=== PATIENT | female | born 1970 | race Caucasian/White ===

== ENCOUNTER 2020-08-05 06:29 | Outpatient (REF) | payer OTHER, SELFPAY | END 2020-08-05 06:30 | disposition home or self-care (01) | LOC: HO.LAB 06:29 | PROVIDERS: PCP Physician Assistant Medical; Visit Provider Internal Medicine | DX: Z20.828 Contact with and (suspected) exposure to other viral communicable diseases (principal) | CPT/HCPCS: C9803; U0003 ==

== ENCOUNTER 2021-07-29 10:56 | Outpatient (REF) | payer OTHER, SELFPAY ==
[2021-07-29 12:03] LABS: IDNOW Serial# 16C4AD1C
[2021-07-29 12:04] LABS: COVID-19 Test Negative (Negative)
== END 2021-07-29 10:57 | disposition home or self-care (01) ==
LOC: HO.LAB 10:56
PROVIDERS: Visit Provider Internal Medicine
DX: Z20.822 Contact with and (suspected) exposure to COVID-19 (principal)
CPT/HCPCS: 36415; 87635; C9803

== ENCOUNTER 2021-08-17 09:58 | Outpatient (REF) | payer OTHER, SELFPAY ==
[2021-08-17 10:36] LABS: Binax Internal Control QC Valid; Binax Lot number: 9864; Binax Now Covid-19 Ag Negative (Negative)
== END 2021-08-17 09:59 | disposition home or self-care (01) ==
LOC: HO.LAB 09:58
PROVIDERS: Visit Provider Internal Medicine
DX: Z20.822 Contact with and (suspected) exposure to COVID-19 (principal)
CPT/HCPCS: 36415; C9803

== ENCOUNTER 2022-06-18 08:50 | Outpatient (RCR) | payer OTHER, SELFPAY | END 2022-07-01 10:47 | disposition home or self-care (01) | LOC: HO.PT 08:50 | PROVIDERS: PCP Nurse Practitioner Family; Visit Provider Nurse Practitioner Family | DX: M54.50 Low back pain, unspecified (principal) | CPT/HCPCS: 97110; 97161 ==

== ENCOUNTER 2022-09-27 14:00 | Outpatient (RCR) | payer OTHER, SELFPAY | END 2022-12-30 15:05 | disposition home or self-care (01) | LOC: HO.PTWFD 14:00 | PROVIDERS: PCP Nurse Practitioner Family; Visit Provider Nurse Practitioner Family | DX: M54.9 Dorsalgia, unspecified (principal) | CPT/HCPCS: 97014; 97110; 97140; 97161; 97535 ==

== ENCOUNTER 2023-04-19 09:55 | Outpatient (AMB) | payer OTHER, SELFPAY ==
--- NOTE | 2023-04-19 10:06 | A.OFFVIS_ITS ---
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 States her right hand is worse. States symptoms have worsen in the last year but symptoms initially started about 10 yrs ago. Patient has tried bracing and exercises at home. Patient has an appointment book with another orthopedic who is offering injection. Patient would like to discuss surgical intervention since she is concern about her muscle loss and weakness. No EMG done. 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 She says this has been present for ~10 years but has worsened in the last year. Her symptoms are intermittent, but daily, and worse at night. She says her hands go numb every night . She denies any small finger numbness. She is also concerned about her function, she says she has difficulty with activities such as doing her hair. She has an appointment booked with an outside orthopedic office who is offering her injections, but she would like to discuss surgery. She has tried bracing and exercises in the past, without relief. She says she has never completed a NCS in the past. 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 Review of Systems Const All systems reviewed & are unremarkable except as noted in HPI and below Physical Exam Vital Signs: BMI result Body Mass Index 27.2 Const General: no acute distress and alert Orientation/consciousness: patient oriented x3 HEENT Head: Yes normocephalic and Yes atraumatic Eyes EOM: EOMs intact bilaterally Resp Effort & Inspection: normal respiratory effort and able to speak in complete sentences Cardio Jugular venous distension: no JVD Skin General skin exam: turgor normal Rashes: no rashes Neuro General: patient oriented x3 Extrem Other: Evaluation of Bilateral Upper Extremity: The patient is alert, oriented, and in no acute distress Neuro: Median, Ulnar, Radial nerves motor and sensory intact and sensation is normal to the tips of all digits today in clinic No thenar or intrinsic wasting Good APB muscle belly firing and good finger cross Vascular: Cap refill brisk ROM: She can make a fist and extend all her digits No locking or catching Skin: No lacerations or abrasions. General: No Ecchymosis. No Erythema or evidence of infection. Psych Appearance: grossly normal Affect: normal affect Attitude: cooperative Assessment & Plan Assessment & Plan (1) Numbness and tingling in right hand: Code(s): R20.0 - Anesthesia of skin; R20.2 - Paresthesia of skin (2) Numbness and tingling in left hand: Code(s): R20.0 - Anesthesia of skin; R20.2 - Paresthesia of skin Plan Assessment & Plan: 1. Right hand numbness In the median nerve distribution Symptoms intermittent, but daily, worse at night or with activities 2. Left hand numbness In the median nerve distribution Symptoms intermittent, but daily, worse at night or with activities I educated her about Carpal tunnel syndrome We discussed operative and non operative treatment options. She no longer has relief from bracing at night. I explained that I am more likely to recommend operative treatment, as I do not believe that steroid injections would be beneficial at this point. I ordered a NCS to assess for peripheral neuropathy vs cervical radiculopathy She says she will cancel her scheduled injections with an outside orthopedic provider at this time. She will follow up when completed for review. Scribed for Roberta Luna MD by Antonio Barragan, medical lab tech instructor, on 04/19/23 at 10:40 AM, EST. Coding Level of Care Code New Pt Level 3 (18376) Diagnoses Numbness and tingling in right hand R20.0; R20.2 Numbness and tingling in left hand R20.0; R20.2
[2023-04-19 10:10] VITALS: BMI 27.2
== END 2023-04-19 10:58 | disposition home or self-care (01) ==
PROVIDERS: PCP Nurse Practitioner Family; Visit Provider Orthopaedic Surgery
DX: R20.0 Anesthesia of skin (principal); R20.2 Paresthesia of skin
CPT/HCPCS: 99203

== ENCOUNTER → 2023-04-19 09:55 | Outpatient (BNVA) | payer OTHER, SELFPAY | PROVIDERS: PCP Nurse Practitioner Family; Visit Provider Orthopaedic Surgery ==

== ENCOUNTER 2023-05-20 09:53 | Outpatient (REF) | payer OTHER, SELFPAY | END 2023-05-20 09:54 | disposition home or self-care (01) | LOC: HO.NEURO 09:53 | PROVIDERS: PCP Nurse Practitioner Family; Visit Provider Orthopaedic Surgery | DX: R20.0 Anesthesia of skin (principal); R20.2 Paresthesia of skin | CPT/HCPCS: 95886; 95911 ==

== ENCOUNTER → 2023-05-20 09:55 | Outpatient (BNV) | payer OTHER, SELFPAY | PROVIDERS: PCP Nurse Practitioner Family; Visit Provider Physical Medicine & Rehabilitation | DX: G56.13 Other lesions of median nerve, bilateral upper limbs (principal); G56.03 Carpal tunnel syndrome, bilateral upper limbs | CPT/HCPCS: 95886; 95911 ==

== ENCOUNTER 2023-06-15 10:31 | Outpatient (AMB) | payer OTHER, SELFPAY ==
--- NOTE | 2023-06-15 10:45 | A.OFFVIS_ITS ---
Intake Vital Signs 06/15/23 10:46 Height 5 ft 2 in Weight 149 lb BMI 27.2 Intake Visit Reasons: OV- EMG review for B/L hands Intake Note: Leandra 52 yr old female presents today for her EMG review. Allergies No Known Allergies [No Known Allergies*] Allergy (Verified 06/15/23 11:05) HPI OV- EMG review for B/L hands HPI Details Leandra is a 52 year old woman who returns for a NCS review of her bilateral hand numbness She continues to have numbness in the thumb, index, and middle fingers bilaterally. Her symptoms are intermittent, but daily, and worse at night. She says her hands go numb every night . She denies any small finger numbness. She is also concerned about her function, she says she has difficulty with activities such as doing her hair. She has tried bracing and exercises in the past, without relief. 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 This is an abnormal study. 2. There is electrodiagnostic evidence for bilateral moderate-severe median neuropathy at the wrist, consistent with carpal tunnel syndrome. 3. There is no electrodiagnostic evidence for ulnar neuropathy, brachial plexopathy, or cervical radiculopathy. Thank you for your kind referral. Lolis Nunez MD, SHAGGY 05/20/23 Assessment & Plan Assessment & Plan (1) Carpal tunnel syndrome of right wrist: Code(s): G56.01 - Carpal tunnel syndrome, right upper limb (2) Carpal tunnel syndrome of left wrist: Code(s): G56.02 - Carpal tunnel syndrome, left upper limb Plan Assessment & Plan: 1. Left Carpal tunnel syndrome, moderate-severe Symptoms intermittent, but daily, worse at night or with activities 2. Right Carpal tunnel syndrome, moderate-severe Symptoms intermittent, but daily, worse at night or with activities I educated her about this condition I discussed operative and non-operative treatment options The patient would like to proceed with surgery, beginning with the right hand The risks and benefits of operative treatment were discussed with the patient and the patient wishes to proceed with surgery. These risks include, but are not limited to risk of damage to blood vessels, nerves, tendons, infection, recurrence, incomplete relief of preoperative symptoms, persistent pain, possible need for further surgery and the risks associated with regional blocks and anesthesia. The plan is to take the patient to the operating room sometime in the next few weeks for the following procedures: 1. Left carpal tunnel release, under local All of the preoperative paperwork including the consent was filled out today. All the patient's questions were answered. The patient understands that they will be contacted by our project scheduler soon to schedule this procedure She denies Diabetes, blood thinners, asthma, heart, lung, kidney issues We can discuss treatment for her right hand at a later date Scribed for Roberta Luna MD by Antonio Barragan, electromedical service engineer, on 06/15/23 at 11:30 AM, EST. Coding Level of Care Code Est Pt Level 4 (02937) Diagnoses Carpal tunnel syndrome of right wrist G56.01 Carpal tunnel syndrome of left wrist G56.02
[2023-06-15 10:46] VITALS: BMI 27.2
== END 2023-06-15 11:32 | disposition home or self-care (01) ==
PROVIDERS: PCP Nurse Practitioner Family; Visit Provider Orthopaedic Surgery
DX: G56.03 Carpal tunnel syndrome, bilateral upper limbs (principal)
CPT/HCPCS: 99214

== ENCOUNTER → 2023-06-15 10:31 | Outpatient (BNVA) | payer OTHER, SELFPAY | PROVIDERS: PCP Nurse Practitioner Family; Visit Provider Orthopaedic Surgery ==

== ENCOUNTER 2023-08-25 11:50 | Day surgery (SDC) | payer OTHER, SELFPAY ==
[2023-08-25 12:02] VITALS: BMI 28.0
--- NOTE | 2023-08-25 12:02 | MHC.SHP ---
Pre-Procedural Eval Section A Date of Service: 08/25/23 The patient is an INPATIENT: No Changes since office visit: No Cold of Flu in the past 2 weeks, No New Medical Problems, No Changes in Medication and No Patient answered all questions The History & Physical has been completed within 30 days and I have reviewed it.: Yes Section B Chief Complaint: Carpal tunnel syndrome, left upper limb Allergies: Allergies Allergy/AdvReac Type Severity Reaction Status Date / Time No Known Allergies Allergy Verified 06/15/23 11:05 [No Known Allergies*] Plan I have reviewed the history and physical and performed a pertinent physical examination on my patient. No changes have occurred unless specified. Time Spent With Patient Time: Total time managing care of this patient today ____ minutes.
--- NOTE | 2023-08-25 12:02 | W.PM.OPN ---
Operative Note Operative Note Date of Service: 08/25/23 Narrative: Preop diagnosis: 1. Left Carpal tunnel syndrome Postop diagnosis: same Procedure: 1. Left Carpal tunnel release Surgeon: Roberta Luna MD Anesthesia: local block using 1% lidocaine with epinephrine Findings: Thickened transverse carpal ligament. EBL: Less than 5 mL Specimens: None Complications: None Disposition: Brought to recovery room in stable condition Plan: Follow-up for 10-14 days for wound check and suture removal Indications: The patient is 53 years old, with left carpal tunnel syndrome that has been unresponsive to nonoperative management. The risks and benefits of operative treatment including but not limited to risk of damage to blood vessels, nerves, tendons, infection, persistent pain, persistent symptoms, or possible need for additional surgery were discussed with the patient and the patient wishes to proceed with surgery. Procedure: Once consent was obtained a local block was performed using a combination of 1% lidocaine with epinephrine. The patient was then brought back to the operating suite and placed on the operative table in supine position. The left upper extremity was prepped and draped in a standard surgical fashion. Once assured that we had a good block, a 2.0 cm longitudinal incision was made centered over the carpal tunnel. The incision was made through the skin to the subcutaneous tissues using a #15 blade. Dissection was made down to the level of the transverse carpal ligament with care being taken to protect the palmar cutaneous nerve. Once the transverse carpal ligament was clearly visualized, a longitudinal incision was made in the transverse carpal ligament 1st using a #15 blade, then using tenotomy scissors under direct visualization. Care was taken to look for and protect the motor branch of the median nerve when seen in this area. Once satisfied with our carpal tunnel release the wound was copiously irrigated with normal saline and hemostasis was obtained with a brief period of local pressure. The skin edges were reapproximated with some 5.0 nylon suture material and a sterile dressing was applied. The patient appears to have tolerated the procedure well and with no complications. All digits were well vascularized at the conclusion of the case.
[2023-08-25 12:07] VITALS: BP 148/78; PULSE 77; RESP 16; TEMP 37; O2SAT 98
[2023-08-25 14:06] VITALS: BP 149/83; PULSE 98; RESP 17; O2SAT 100
== END 2023-08-25 14:08 | disposition home or self-care (01) ==
PROVIDERS: PCP Physician Assistant; Visit Provider Orthopaedic Surgery
PROC: (CPT 64721; principal; 2023-08-25 13:50)
DX: G56.02 Carpal tunnel syndrome, left upper limb (principal); R20.0 Anesthesia of skin
CPT/HCPCS: 64721; J0171

== ENCOUNTER → 2023-08-25 11:50 | Outpatient (BNV) | payer OTHER, SELFPAY | PROVIDERS: PCP Physician Assistant; Visit Provider Orthopaedic Surgery | DX: G56.02 Carpal tunnel syndrome, left upper limb (principal) | CPT/HCPCS: 64721 ==

== ENCOUNTER 2023-09-06 08:13 | Outpatient (AMB) | payer OTHER, SELFPAY ==
--- NOTE | 2023-09-06 08:24 | MHC.OFFVIS ---
Intake Vital Signs 09/06/23 08:28 Height 5 ft 2 in Weight 153 lb BMI 28.0 Intake Visit Reasons: PO-Lt CTR 08/25/23 AR Intake Note: Leandra is a 53 year old right hand dominant female who presents today for a post op appointment s/p Lt CTR 08/25/23 AR. Patient reports her symptoms has improved after surgery. She states that she hasn't gotten any numbness at night since after surgery. Patient would like to book an appointment for surgery to get her right hand done. Allergies No Known Allergies [No Known Allergies*] Allergy (Verified 09/06/23 08:24) HPI PO-Lt CTR 08/25/23 AR HPI Details 53-year-old female who presents in the office today 12 days status post left carpal tunnel release, which was performed on 08/25/[address] Luna. The patient reports her symptoms having improved since surgery, such as a resolution of numbness at night. The patient is interested in book surgery with Dr. Luna on the right side. She states the right hand pain has increased since her surgery and feels this is due to her using the hand more. 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 No ecchymosis, erythema, or edema. Sutures intact. No surrounding erythema or drainage. No signs of infection. Full wrist ROM. Able to perform full finger flexion, extension, abduction, adduction, finger cross, okay sign, and thumbs up without deficit. Able to make a closed fist. Sensation intact. Capillary refill is brisk. Radial pulse intact. Patient reports all symptoms have fully resolved. Assessment & Plan Assessment & Plan (1) Carpal tunnel syndrome of left wrist: Comment: Left carpal tunnel release 08/25/2023 Dr. Roberta Luna Code(s): G56.02 - Carpal tunnel syndrome, left upper limb Plan Ms. Diaz is a 53-year-old female who presents in the office today 12 days status post left carpal tunnel release, which was performed on 08/25/[address] Luna. The patient reports her symptoms having improved since surgery, such as a resolution of numbness at night. The patient is interested in book surgery with Dr. Luna on the right side. She states the right hand pain has increased since her surgery and feels this is due to her using the hand more. Sutures were removed and steri-stripes were applied. The patient was educated she is to continue with no heavy lifting for 4 weeks and then for 2 additional weeks after that she is not submerge the hand in water. Follow up will be in [address] Luna so the patient can discuss right carpal tunnel release, or sooner if needed. Patient Instructions: Scribed for Renetta Taylor PA-C by Jazmin Frey medical insurance collector, on 09/06/2023 at 8:17 am, EST. Coding Level of Care Code Global (94608) Diagnoses Carpal tunnel syndrome of left wrist G56.02
[2023-09-06 08:28] VITALS: BMI 28.0
== END 2023-09-06 08:54 | disposition home or self-care (01) ==
PROVIDERS: PCP Nurse Practitioner Family; Visit Provider Physician Assistant
DX: G56.02 Carpal tunnel syndrome, left upper limb (principal)
CPT/HCPCS: 99024

== ENCOUNTER → 2023-09-06 08:13 | Outpatient (BNVA) | payer OTHER, SELFPAY | PROVIDERS: PCP Nurse Practitioner Family; Visit Provider Physician Assistant ==

== ENCOUNTER 2023-11-14 10:30 | Outpatient (RCR) | payer OTHER, SELFPAY ==
--- NOTE | 2023-12-05 08:38 | MHC.OT.DC ---
[address] [phone] F: [phone] Occupational Therapy Discharge Note Patient Name: Leandra Diaz Provider: Roberta Luna MD Diagnosis: S/P L CTR Date of Surgery: 08/25/23 Date of Evaluation: 11/04/23 Date of Discharge: 12/05/23 Treatments to Date: 4 Cancellations to Date: 1 No Shows to Date: 2 Discharge Status: Independent with HEP Patient Elected to Stop Discharge Summary: Leandra is now about 3 months post-op left CTR. She has good follow through with home program, was still reporting increased pain in volar wrist, but we have been limiting repetitive gripping with some improvement. She has missed last several appointments and we will be discharging her from services at this time. Electronically Signed By: ALICIA Yun/Costa CHT Reviewed/agree with student documentation: Therapist: Please Sign and return to therapist, thank you for your referral.
== END 2023-12-05 08:40 | disposition home or self-care (01) ==
LOC: HO.OT 10:30
PROVIDERS: PCP Nurse Practitioner Family; Visit Provider Orthopaedic Surgery
DX: G56.02 Carpal tunnel syndrome, left upper limb (principal)
CPT/HCPCS: 97035; 97110; 97140; 97165

== ENCOUNTER 2023-12-05 09:53 | Day surgery (SDC) | payer OTHER, SELFPAY ==
[2023-12-05 10:15] VITALS: BP 120/66; PULSE 79; RESP 18; TEMP 36.6; O2SAT 99; BMI 31.5
--- NOTE | 2023-12-05 10:31 | MHC.SHP ---
Pre-Procedural Eval Section A - 24 Hr Update-Section A only Date of Service: 12/05/23 The patient is an INPATIENT: No Changes since office visit: No Cold of Flu in the past 2 weeks, No New Medical Problems, No Changes in Medication and No Patient answered all questions The patient has been examined within 24 hours of the surgical procedure. The History & Physical has been completed within 30 days and I have reviewed it.: Yes Section B - Complete if H&P > 30 days Chief Complaint: Carpal tunnel syndrome, right upper limb Allergies: Allergies Allergy/AdvReac Type Severity Reaction Status Date / Time No Known Allergies Allergy Verified 09/06/23 08:24 [No Known Allergies*] Exam Exam Comment: Left carpal tunnel syndrome Plan Diagnosis/Plan: Unchanged I have reviewed the history and physical and performed a pertinent physical examination on my patient. No changes have occurred unless specified. Time Spent With Patient Time: Total time managing care of this patient today ____ minutes.
--- NOTE | 2023-12-05 10:32 | W.PM.OPN ---
Operative Note Operative Note Date of Service: 12/05/23 Narrative: Preop diagnosis: 1. Left Carpal tunnel syndrome Postop diagnosis: same Procedure: 1. Left Carpal tunnel release Surgeon: Roberta Luna MD Anesthesia: local block using 1% lidocaine with epinephrine Findings: Thickened transverse carpal ligament. EBL: Less than 5 mL Specimens: None Complications: None Disposition: Brought to recovery room in stable condition Plan: Follow-up for 10-14 days for wound check and suture removal Indications: The patient is 53 years old, with left carpal tunnel syndrome that has been unresponsive to nonoperative management. The risks and benefits of operative treatment including but not limited to risk of damage to blood vessels, nerves, tendons, infection, persistent pain, persistent symptoms, or possible need for additional surgery were discussed with the patient and the patient wishes to proceed with surgery. Procedure: Once consent was obtained a local block was performed using a combination of 1% lidocaine with epinephrine. The patient was then brought back to the operating suite and placed on the operative table in supine position. The left upper extremity was prepped and draped in a standard surgical fashion. Once assured that we had a good block, a 2.0 cm longitudinal incision was made centered over the carpal tunnel. The incision was made through the skin to the subcutaneous tissues using a #15 blade. Dissection was made down to the level of the transverse carpal ligament with care being taken to protect the palmar cutaneous nerve. Once the transverse carpal ligament was clearly visualized, a longitudinal incision was made in the transverse carpal ligament 1st using a #15 blade, then using tenotomy scissors under direct visualization. Care was taken to look for and protect the motor branch of the median nerve when seen in this area. Once satisfied with our carpal tunnel release the wound was copiously irrigated with normal saline and hemostasis was obtained with a brief period of local pressure. The skin edges were reapproximated with some 5.0 nylon suture material and a sterile dressing was applied. The patient appears to have tolerated the procedure well and with no complications. All digits were well vascularized at the conclusion of the case.
[2023-12-05 12:45] VITALS: BP 123/66; PULSE 73; RESP 16; O2SAT 100
== END 2023-12-05 12:49 | disposition home or self-care (01) ==
PROVIDERS: PCP Physician Assistant; Visit Provider Orthopaedic Surgery
PROC: (CPT 64721; principal; 2023-12-05 12:20)
DX: G56.01 Carpal tunnel syndrome, right upper limb (principal)
CPT/HCPCS: 64721; J0171

== ENCOUNTER → 2023-12-05 09:53 | Outpatient (BNV) | payer OTHER, SELFPAY | PROVIDERS: PCP Physician Assistant; Visit Provider Orthopaedic Surgery | DX: G56.01 Carpal tunnel syndrome, right upper limb (principal) | CPT/HCPCS: 64721 ==

== ENCOUNTER 2023-12-21 14:24 | Outpatient (AMB) | payer OTHER, SELFPAY ==
--- NOTE | 2023-12-21 14:57 | MHC.OFFVIS ---
Vital Signs 12/21/23 15:04 Height 5 ft 2 in Weight 172 lb BMI 31.5 Intake Visit Reasons: P/O RT CTR 12/05/23 Intake Note: Leandra a 53 year old female presents today for a post operative right CTR on 12/05/23. Patient reports improvement in her numbness and tingling. States no concerns today. Allergies No Known Allergies [No Known Allergies*] Allergy (Verified 12/21/23 15:02) HPI HPI P/O RT CTR 12/05/23: Details: Leandra is a 53 year old right hand dominant woman who presents S/P right carpal tunnel release, DOS: 11/15/23. She says she is doing well and her sensation is improving and now normal. She has good resolution of her nighttime symptoms. She has a hx of a left carpal tunnel release, DOS: 08/25/23. She says her sensation is now normal and she is happy with her results. 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 Her grandson was newly born last night. 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 Sutures removed and Steri-Strips applied She can make a fist and extend all her digits Sensation is normal to the tips of all digits bilaterally Cap refill is brisk Nerve Conduction Study: IMPRESSION: 1. This is an abnormal study. 2. There is electrodiagnostic evidence for bilateral moderate-severe median neuropathy at the wrist, consistent with carpal tunnel syndrome. 3. There is no electrodiagnostic evidence for ulnar neuropathy, brachial plexopathy, or cervical radiculopathy. Lolis Nunez MD, SHAGGY 05/20/23 Psych Appearance: grossly normal Affect: normal affect Attitude: cooperative Assessment & Plan Assessment & Plan (1) Carpal tunnel syndrome of right wrist: Code(s): G56.01 - Carpal tunnel syndrome, right upper limb Category: Medical (2) Carpal tunnel syndrome of left wrist: Comment: Left carpal tunnel release 08/25/2023 Dr. Roberta Luna Code(s): G56.02 - Carpal tunnel syndrome, left upper limb Category: Medical Plan Assessment & Plan: 1. Right Carpal tunnel syndrome, S/P release DOS: 12/05/23 Pre-operative symptoms intermittent, but daily, worse at night or with activities Now with normal sensation and good resolution of her overnight symptoms The patient appears to be doing well post-operatively I educated her about the post-operative course I discussed activity modifications, she is to lift nothing heavier than a cellphone for the next two weeks She will perform gentle ROM exercises at home She should avoid any underwater activities for the next 5 days She should gently massage about the incision site to reduce the risk of hypersensitivity She can follow up prn 2. Left Carpal tunnel syndrome, S/P release DOS: 08/25/23 Pre-operative symptoms intermittent, but daily, worse at night or with activities Now with normal sensation and good resolution of her overnight symptoms Scribed for Roberta Luna MD by Antonio Barragan, medical office assistant, on 12/21/23 at 3:05 PM, EST. Scribe Plan - Not visible on output: Scribed for Roberta Luna MD by Antonio Barragan medical office assistant, on [ ] at [ ], EST. Coding Level of Care Code Global (26531) Diagnoses Carpal tunnel syndrome of right wrist G56.01 Carpal tunnel syndrome of left wrist G56.02
[2023-12-21 15:04] VITALS: BMI 31.5
== END 2023-12-21 15:20 | disposition home or self-care (01) ==
LOC: HO.HOS 14:24
PROVIDERS: PCP Physician Assistant; Visit Provider Orthopaedic Surgery
DX: G56.03 Carpal tunnel syndrome, bilateral upper limbs (principal)
CPT/HCPCS: 99024

== ENCOUNTER → 2023-12-21 14:24 | Outpatient (BNVA) | payer OTHER, SELFPAY | PROVIDERS: PCP Physician Assistant; Visit Provider Orthopaedic Surgery ==